=== PATIENT | female | born 1955 | race Caucasian/White ===

== ENCOUNTER 2021-01-03 09:03 | Day surgery (SDC) | payer MEDICARE ==
[~2021-01-03] VITALS: Ht 172.7 cm; Wt 75.6 kg
[2021-01-03 09:34] VITALS: BP 107/60
[2021-01-03] MEDS ORDERED: GABA300C PO (09:52)
[2021-01-03] MEDS ORDERED: ASCO-162 PO (09:52)
[2021-01-03] MEDS ORDERED: LIDOcaine 1%/PF 5ML 10 MG/ML VIAL ONE ×2 (09:52→10:10)
[2021-01-03] MEDS ORDERED: IPRA4AER IH (09:52)
[2021-01-03] MEDS ORDERED: ERGO400C PO (09:54)
[2021-01-03] MEDS ORDERED: CYAN250010 PO (09:54)
[2021-01-03] MEDS ORDERED: CALC-336 PO (09:54)
[2021-01-03 10:29] VITALS: BP 153/65
[2021-01-03 10:42] VITALS: BP 108/75
== END 2021-01-03 10:50 | disposition home or self-care (01) ==
LOC: SSTAY O 09:03
PROVIDERS: ATTEND Radiology Diagnostic Radiology
DX: Z45.2 Encounter for adjustment and management of vascular access device (principal); Z85.72 Personal history of non-Hodgkin lymphomas; Z88.5 Allergy status to narcotic agent; Z88.8 Allergy status to other drugs, medicaments and biological substances
CPT/HCPCS: 36590; 87070

== ENCOUNTER 2023-04-03 08:13 | Day surgery (SDC) | payer MEDICARE ==
[2023-04-03] VITALS (15 sets, daily range): BP systolic 106–128; BP diastolic 46–78
[~2023-04-03] VITALS: Ht 172.7 cm; Wt 75.9 kg
[~2023-04-03 08:13] MED LIST: ASCO-162 PO; CALC-336 PO; CYAN250010 PO; ERGO400C PO; GABA300C PO; IPRA4AER IH
[2023-04-03] MEDS ORDERED: normal saline 1000ml 1,000 ML IV PRN (08:40)
[2023-04-03] MEDS ORDERED: albumin 25% 100mL bottle x 1 IV PRN (08:40)
[2023-04-03 09:10] LABS: BASOPHILS % (AUTO) 0.7 % (0-1); EOSINOPHILS # (AUTO) 0.1 X10'3 (0-0.9); EOSINOPHILS % (AUTO) 3.2 % (0-6); HEMATOCRIT 41.2 % (35.0-45.0); HEMOGLOBIN 13.9 g/dl (12.0-16.0); LYMPHOCYTES # (AUTO) 0.6 X10'3 (1.1-4.8); LYMPHOCYTES % (AUTO) 16.8 % (21-51); MEAN CORPUSCULAR HEMOGLOBIN 31.3 PG (27.0-31.0); MEAN CORPUSCULAR HGB CONC 33.6 g/dL (33.0-36.5); MEAN CORPUSCULAR VOLUME 93.3 FL (78-98); MEAN PLATELET VOLUME 9.9 FL (7.4-10.4); MONOCYTES # (AUTO) 0.3 X10'3 (0-0.9); MONOCYTES % (AUTO) 8.9 % (2-12); NEUTROPHILS # (AUTO) 2.4 X10'3 (1.8-7.7); NEUTROPHILS % (AUTO) 70.4 % (42-75); PLATELET COUNT 139 X10'3 (140-440); RED BLOOD COUNT 4.42 X10'6 (4.20-5.60); RED CELL DISTRIBUTION WIDTH 13.9 % (11.5-14.5); WHITE BLOOD COUNT 3.5 X10'3 (4.5-11.0)
[2023-04-03] MEDS ORDERED: DENO60DI SUBCUT (09:12)
[2023-04-03] MEDS ORDERED: ROSU20TA31 PO (09:12)
[2023-04-03] MEDS ORDERED: fentaNYL/PF 50MCG/1 ML 2ML syringe ONE (10:07)
[2023-04-03] MEDS ORDERED: midazolam 1 mg/ML 2ml injection ONE (10:08)
== END 2023-04-03 13:30 | disposition home or self-care (01) ==
LOC: SSTAY O 08:13
PROVIDERS: ATTEND Radiology Vascular & Interventional Radiology
DX: R91.1 Solitary pulmonary nodule (principal); C83.39 Diffuse large B-cell lymphoma, extranodal and solid organ sites; Z88.5 Allergy status to narcotic agent; Z91.040 Latex allergy status; Z88.8 Allergy status to other drugs, medicaments and biological substances; Z79.899 Other long term (current) drug therapy
CPT/HCPCS: 10009; 36415; 71045; 85025; 99152; 99153; J2250; J3010; J7030; 32408; 77012; A4615